=== PATIENT | female | born 2005 | race Two or more races ===

== ENCOUNTER 2025-04-16 09:48 | Emergency (ER) | payer OTHER ==
[~2025-04-16] VITALS: Ht 162.6 cm; Wt 63.5 kg
[2025-04-16 11:38] VITALS: BP 110/60; O2SAT 100
== END 2025-04-16 11:39 | disposition home or self-care (01) ==
LOC: EMR PED 10:34 → ER 10:34 → EMR PED 11:39
DX: B30.9 Viral conjunctivitis, unspecified (principal)